=== PATIENT | male | born 1975 | race Native Hawaiian/Other Pacific Islander ===

== ENCOUNTER 2020-11-27 09:44 | Outpatient (CLI) | payer BC, OTHER | END 2020-11-27 23:59 | LOC: INF 09:44 | PROVIDERS: ATTEND Internal Medicine | DX: Z23 Encounter for immunization (principal) | CPT/HCPCS: 96372 ==

== ENCOUNTER 2020-12-25 08:02 | Outpatient (CLI) | payer BC, OTHER | END 2020-12-25 20:51 | disposition home or self-care (01) | LOC: INF 08:02 | PROVIDERS: ATTEND Internal Medicine | DX: Z23 Encounter for immunization (principal) | CPT/HCPCS: 96372 ==